=== PATIENT | male | born 1955 | race Caucasian/White ===

== ENCOUNTER 2016-10-20 12:12 | Emergency (ER) | payer BC ==
[2016-10-20] MEDS ORDERED: MAGNEVIST 15ML IV ONE (12:13)
== END 2016-10-20 16:45 | disposition home or self-care (01) ==
LOC: ER 12:12
DX: G45.9 Transient cerebral ischemic attack, unspecified (principal)
CPT/HCPCS: 36415; 70553; 80053; 82947; 85025; 85610; 85730; 93005